=== PATIENT | male | born 1975 | race Caucasian/White ===

== ENCOUNTER 2018-09-03 04:11 | Day surgery (SDC) | payer OTHER ==
[2018-09-03] MEDS ORDERED: Morphine VIAL* 4 MG/ML VIAL (1 ml vial) IV PRN ×2 (04:37→12:50)
[2018-09-03] MEDS ORDERED: NS 0.9% 1000 ML* 1,000 ML IV ONE (04:37)
[2018-09-03] MEDS ORDERED: Metoclopramide IV* 5 MG/ML 2 ML VIAL IV SLOW PU ONE (04:37)
[2018-09-03 05:10] LABS: ABS Basophils 0.1 10^3/ul (0-0.2); ABS Eosinophils 0.2 10^3/ul (0-0.6); ABS Lymphocytes 1.8 10^3/ul (1.0-4.8); ABS Monocytes 1.1 10^3/ul (0-0.8); ABS Neutrophils 7.2 10^3/ul (1.5-7.7); ABS Nucleated RBC 0 10^3/ul; Eosinophil % 1.7 % (0-6); Hematocrit 44 % (42-52); Hemoglobin 14.9 g/dl (14.0-18.0); Lymphocyte % 17.7 % (25-47); Mean Corpuscular HGB Conc 34 g/dl (31-36); Mean Corpuscular Hemoglobin 31 pg (27-31); Mean Corpuscular Volume 91 fL (80-94); Mean Platelet Volume 8.1 fL (7.4-10.4); Nucleated Red Blood Cells % 0; Platelet Count 204 10^3/ul (150-450); Red Blood Count 4.79 10^6/ul (4.00-5.40); Red Cell Distribution Width 13 % (10.5-15); White Blood Count 10.4 10^3/ul (3.5-10.8)
[2018-09-03 05:12] LABS: Urine Appearance Clear; Urine Blood Negative (Negative); Urine Color Yellow; Urine Ketones Negative (Negative); Urine Protein Negative (Negative); Urine Specific Gravity 1.021 (1.010-1.030); Urine Urobilinogen Negative (Negative)
[2018-09-03 05:18] LABS: INR 0.98 (0.77-1.02)
--- NOTE | 2018-09-03 05:20 | ED ---
Abdominal Pain/Male - HPI Summary HPI Summary: A 42 y/o male presents to the ED c/o RUQ abd pain since 09/01/2018. He denies N/ V. He claims to have had no abdominal surgeries but has a Hx of diverticulitis. He rates his pain as 5/10. He states that it hurts when he coughs and also c/o diarrhea. The pt did not have trouble eating today 09/03/2018. - History of Current Complaint Chief Complaint: EDAbdPain Stated Complaint: ABD PAIN Time Seen by Provider: 09/03/18 04:26 Hx Obtained From: Patient Onset/Duration: Sudden Onset, Lasting Days, Still Present Timing: Constant, Lasting Days Severity Initially: Moderate Severity Currently: Moderate Pain Intensity: 5 Pain Scale Used: 0-10 Numeric - Allergies/Home Medications Allergies/Adverse Reactions: Allergies Allergy/AdvReac Type Severity Reaction Status Date / Time No Known Allergies Allergy Verified 09/03/18 04:22 Home Medications: Home Medications NK [No Home Medications Reported] 09/03/18 [History Confirmed 09/03/18] PMH/Surg Hx/FS Hx/Imm Hx Endocrine/Hematology History: Denies: Hx Diabetes Cardiovascular History: Denies: Hx Hypertension Infectious Disease History: No Infectious Disease History: Denies: Traveled Outside the [place] in Last 30 Days - Family History Known Family History: Negative: Cardiac Disease, Hypertension, Diabetes - Social History Alcohol Use: None Substance Use Type: Reports: None Smoking Status (MU): Never Smoked Tobacco Review of Systems Positive: Cough Positive: Abdominal Pain - RUQ, Diarrhea. Negative: Vomiting, Nausea All Other Systems Reviewed And Are Negative: Yes Physical Exam - Summary Physical Exam Summary: VITAL SIGNS: Reviewed. GENERAL: Patient is a well-developed and nourished MALE who is lying comfortable in the stretcher. Patient is not in any acute respiratory distress. HEAD AND FACE: No signs of trauma. No ecchymosis, hematomas or skull depressions. No sinus tenderness. EYES: PERRLA, EOMI x 2, No injected conjunctiva, no nystagmus. EARS: Hearing grossly intact. Ear canals and tympanic membranes are within normal limits. MOUTH: Oropharynx within normal limits. NECK: Supple, trachea is midline, no adenopathy, no JVD, no carotid bruit, no c- spine tenderness, neck with full ROM. CHEST: Symmetric, no tenderness at palpation LUNGS: Clear to auscultation bilaterally. No wheezing or crackles. CVS: Regular rate and rhythm, S1 and S2 present, no murmurs or gallops appreciated. ABDOMEN: Soft, RUQ tenderness, mild abd distension, No rebound no guarding, and no masses palpated. Bowel sounds are normal. EXTREMITIES: FROM in all major joints, no edema, no cyanosis or clubbing. NEURO: Alert and oriented x 3. No acute neurological deficits. Speech is normal and follows commands. SKIN: Dry and warm Triage Information Reviewed: Yes Vital Signs On Initial Exam: Initial Vitals Temp Pulse Resp BP Pulse Ox 98.3 F 94 16 115/81 95 09/03/18 04:19 09/03/18 04:19 09/03/18 04:19 09/03/18 04:19 09/03/18 04:19 Vital Signs Reviewed: Yes Diagnostics - Vital Signs Vital Signs Temp Pulse Resp BP Pulse Ox 09/03/18 04:19 98.3 F 94 16 115/81 95 - Laboratory Lab Results: Lab Results 09/03/18 09/03/18 Range/Units 04:53 04:55 WBC 10.4 (3.5-10.8) 10^3/ul RBC 4.79 (4.00-5.40) 10^6/ul Hgb 14.9 (14.0-18.0) g/dl Hct 44 (42-52) % MCV 91 (80-94) fL MCH 31 (27-31) pg MCHC 34 (31-36) g/dl RDW 13 (10.5-15) % Plt Count 204 (150-450) 10^3/ul MPV 8.1 (7.4-10.4) fL Neut % (Auto) 69.4 (38-83) % Lymph % (Auto) 17.7 L (25-47) % [place] % (Auto) 10.7 H (0-7) % Eos % (Auto) 1.7 (0-6) % Baso % (Auto) 0.5 (0-2) % Absolute Neuts (auto) 7.2 (1.5-7.7) 10^3/ul Absolute Lymphs (auto) 1.8 (1.0-4.8) 10^3/ul Absolute Monos (auto) 1.1 H (0-0.8) 10^3/ul Absolute Eos (auto) 0.2 (0-0.6) 10^3/ul Absolute Basos (auto) 0.1 (0-0.2) 10^3/ul Absolute Nucleated RBC 0 10^3/ul Nucleated RBC % 0 Urine Color Yellow Urine Appearance Clear Urine pH 7.0 (5-9) Ur Specific [place] 1.021 (1.010-1.030) Urine Protein Negative (Negative) Urine Ketones Negative (Negative) Urine Blood Negative (Negative) Urine Nitrate Negative (Negative) Urine Bilirubin Negative (Negative) Urine Urobilinogen Negative (Negative) Ur Leukocyte Esterase Negative (Negative) Urine Glucose Negative (Negative) Result Diagrams: 09/03/18 04:55 09/03/18 04:55 Lab Statement: Any lab studies that have been ordered have been reviewed, and results considered in the medical decision making process. - CT Abdomen/pelvis CT Interpretation Completed By: Radiologist - Findings consistent with acute appendicitis. No calcified appendicolith. No periappendiceal abscess. No evidence of perforation. No bowel obstruction. ED physician has reviewed this imaging report. Abdominal Pain Fem Course/Dx - Course Course Of Treatment: A 42 y/o male presents to the ED c/o RUQ abd pain since 09/01/2018. His PE revealed RUQ pain. His CT abdomen/pelvis shows findings consistent with acute appendicitis. Dx: appendicitis. The pt will be signed out to Dr. Fernandez pending surgical consult and disposition. - Diagnoses Provider Diagnoses: Appendicitis - Provider Notifications Discussed Care Of Patient With: Gary Mckeon Time Discussed With Above Provider: 06:45 Instructed by Provider To: Other - Will send for surgical consult. Discharge - Sign-Out/Discharge Documenting (check all that apply): Sign-Out Patient Signing out patient TO: Crow Fernandez - Discharge Plan Referrals: No Primary Care Phys,NOPCP [Primary Care Provider] - - Attestation Statements Document Initiated by Scribe: Yes Documenting Scribe: Jameson Miramontes Provider For Whom Scribe is Documenting (Include Credential): Kole Duran MD Scribe Attestation: Jameson Schafer, scribed for Kole Duran MD on 09/03/18 at 0711.
[2018-09-03 05:28] LABS: EGFR Non-African American 76.2 (>60)
[2018-09-03] MEDS ORDERED: Iohexol 300* (CONTRAST) 10 ML SDV IV ONE (05:52)
[2018-09-03] MEDS ORDERED: Piperacillin/Tazobac ADVAN(*) 3.375 GM in NS 0.9% 100 ML* 100 ML IVPB ONE (06:46)
--- NOTE | 2018-09-03 07:19 | ED ---
Progress - Progress Note Progress Note: The pt was signed out by Dr. Duran to Dr. Fernandez, awaiting surgical consult and disposition Course/Dx - Course Course Of Treatment: A 42 y/o male presents to the ED c/o RUQ abd pain since 09/01/2018. His PE revealed RUQ pain. His CT abdomen/pelvis shows findings consistent with acute appendicitis. Dx: appendicitis. The pt was signed out by Dr. Duran to Dr. Fernandez pending surgical consult and disposition. Pt will be admitted to [facility]. The patient is agreeable with this plan. - Diagnoses Provider Diagnoses: Appendicitis - Provider Notifications Time Discussed With Above Provider: 06:45 Instructed by Provider To: Other - Will send for surgical consult. Discharge - Sign-Out/Discharge Documenting (check all that apply): Patient Departure - admission Receiving patient FROM: Kole Duran - Discharge Plan Disposition: ADMITTED TO [facility] - Attestation Statements Document Initiated by Scribe: Yes Documenting Scribe: Abraham Moreira Provider For Whom Scribe is Documenting (Include Credential): Crow Fernandez MD Scribe Attestation: Abraham Schafer, scribed for Crow Fernandez MD on 09/03/18 at 1235.
[2018-09-03] MEDS ORDERED: Famotidine IV* 10 MG/ML 2 ML (20 mg) IV ONE (08:50)
[2018-09-03] MEDS ORDERED: Famotidine IV* 10 MG/ML 2 ML (20 mg) ONE (09:08)
[2018-09-03] MEDS ORDERED: Buffered Lidocaine 0.9% SYRIN* 5 ML/SYR SYRINGE INTRADERM ONE (12:48)
[2018-09-03] MEDS ORDERED: fentaNYL* 50 MCG/ML 2 ML VIAL (100 MCG VIAL) IV PRN (12:50)
[2018-09-03] MEDS ORDERED: Naloxone* 0.4 MG/ML 1 ML VIAL IV PRN (12:50)
[2018-09-03] MEDS ORDERED: oxyCODONE/Acetamin 5/325 MG* TAB PO PRN (12:50)
[2018-09-03] MEDS ORDERED: PROCHLORPERAZINE INJ 5 MG/ML 2 ML VIAL IV PRN (12:50)
[2018-09-03] MEDS ORDERED: DiMENhydriNATE IV* 50 MG/ML VIAL IV PUSH PRN (12:50)
[2018-09-03] MEDS ORDERED: Scopolamine 1.5 mg* PATCH TRANSDERM PRN (12:50)
[2018-09-03] MEDS ORDERED: Atracurium* 10 MG/ML 10 ML VIAL ONE (13:10)
[2018-09-03] MEDS ORDERED: Midazolam* 1 MG/ML 5 ML VIAL (5 MG) ONE (13:10)
[2018-09-03] MEDS ORDERED: KETAMINE HCL* 50 MG/ML 10 ML VIAL ONE (13:10)
[2018-09-03] MEDS ORDERED: fentaNYL* 50 MCG/ML 2 ML VIAL (100 MCG VIAL) ONE (13:10)
--- NOTE | 2018-09-03 13:44 | HP ---
AMENDED REPORT NOW INCLUDES COSIGNER DESIGNATION CC: [facility] * ADMISSION HISTORY AND PHYSICAL: DATE OF ADMISSION: 09/03/18 ATTENDING SURGEON: Dr. Cory Gates.* (DICTATED BY HENNY MARTÍNEZ) CHIEF COMPLAINT: Abdominal pain. HISTORY OF PRESENT ILLNESS: This is a generally healthy 42-year-old male, who first noted onset of abdominal discomfort in the morning of 09/02/18. He describes this as feeling gassy and somewhat distended with a low level ache that began in the central periumbilical region and gradually moved to the right lower quadrant. Pain was never bad enough to take anything more than ibuprofen. However, he was awakened with discomfort at 2 o'clock this morning and did have a fever at that time of 100.4. He was unable to get comfortable and get back to sleep. He did have increased pain with motion. There was associated nausea, vomiting, or diarrhea. At the encouragement of his , he presented to the emergency department for evaluation. 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 He is obese. PAST SURGICAL HISTORY: None. CURRENT MEDICATIONS: None including only p.r.n. use of Tylenol or ibuprofen. No inhalers and no supplements. DRUG ALLERGIES: None. FAMILY HISTORY: Positive for alpha-1 antitrypsin deficiency and negative for anesthesia problems, bleeding or clotting disorders. SOCIAL HISTORY: The patient is . His is present. They have 3 children. 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 He is a lifelong nonsmoker. He drinks 1 to 2 drinks on occasion, but not daily. REVIEW OF SYSTEMS: General: No recent constitutional symptoms or acute illnesses other than described in the HPI. His weight has been stable. HEENT: No recent changes in vision. No other problems reported. Cardiovascular: No chest pain, palpitations, or history of heart murmur. Respiratory: As above , being monitored, but no medication required. GI: As above per HPI. In addition, he did undergo colonoscopy approximately 20 years ago for what was apparently some diverticular bleeding with no interval problems reported. : No dysuria, hematuria, or increased frequency. Endocrine: No diabetes or thyroid dysfunction. Remainder of review of systems is negative. PHYSICAL EXAMINATION GENERAL: Well-nourished, obese male, in no acute distress. He appears comfortable. VITAL SIGNS: Height 6 feet 1 inch, weight 255 pounds. Temperature 98.3, blood pressure 125/85, pulse 74, respirations 20. HEENT: Pupils are equal, round, and reactive. EOMs intact. No conjunctival pallor or scleral icterus. Oropharynx: Mucous membranes moist. No intraoral lesions. Teeth in good repair. NECK: No lymphadenopathy, thyromegaly, or masses. LUNGS: Clear to auscultation. No wheezes. HEART: Regular rate and rhythm. No murmur noted. ABDOMEN: Obese. Bowel sounds present and normal. Soft with fairly well- localized tenderness at McBurney's point with mild rebound and some referred tenderness. No guarding or rigidity. The remainder of the abdomen is soft, nontender, and without palpable masses or organomegaly, though exam is limited by body habitus. No palpable inguinal hernias. GENITALIA: Otherwise, not examined. RECTAL: Not done. BACK: No spinous process or CVA tenderness. EXTREMITIES: No edema. NEUROLOGICAL: Grossly intact. SKIN: Warm and dry. No suspicious rashes or lesions. DIAGNOSTIC STUDIES/LAB DATA: Of note, white blood cell count 10,400, hemoglobin 14.9. Chemistries notable for normal electrolytes, BUN, creatinine, lactic acid, amylase, and lipase. He has a slightly low magnesium at 1.8. Mildly elevated ALT at 76, which has apparently been followed in the past. CRP elevated at 35. CT scan of the abdomen and pelvis with IV contrast only was reviewed directly, showing an enlarged appendix without evidence of abscess or perforation, felt to be consistent with acute appendicitis. IMPRESSION: Acute appendicitis. PLAN: Admission and OR for laparoscopic appendectomy after confirmation of findings and exam by Dr. Gates. The patient is in agreement with plan. HENNY MARTÍNEZ [id number]/[facility] #: [id number] MTDTraci
[2018-09-03] MEDS ORDERED: Bupivacaine 0.5% W/EPI SDV* 30 ML VIAL ONE (13:47)
[2018-09-03] MEDS ORDERED: ceFOXitin 2 GM IVPREMIX* 2 GM/50 ML BAG ONE (13:59)
[2018-09-03] MEDS ORDERED: Ketorolac INJ* 30 MG/ML 1 ML VIAL ONE (14:41)
[2018-09-03] MEDS ORDERED: Neostigmine Methylsulfate* 1 MG/ML 10 ML VIAL (1 mg/ml) ONE (14:41)
[2018-09-03] MEDS ORDERED: Propofol* 10 MG/ML 20 ML BTL IV PUSH ONE (14:41)
[2018-09-03] MEDS ORDERED: Glycopyrrolate IV* 0.2 MG/ML 1 ML VIAL ONE (14:41)
[2018-09-03] MEDS ORDERED: Dexamethasone IV* 4 MG/ML 1 ML (4 MG) ONE (14:41)
[2018-09-03] MEDS ORDERED: Lidocaine 2% PF * 5 ML VIAL ONE (14:53)
[2018-09-03] MEDS ORDERED: Albuterol/Ipratropium NEB.SOL* Albuterol 2.5 MG/Ipratropium 0.5 MG 3 ML ONE (15:04)
[2018-09-03 16:24] VITALS: BP 126/67
--- NOTE | 2018-09-04 13:12 | OP ---
CC: Dr. Cory Gates; [facility]. OPERATIVE REPORT: DATE OF OPERATION: 09/03/18 DATE OF : 77 SURGEON: Cory Gates MD CANE FLUME WATCHER: None. ANESTHESIOLOGIST: Dr. Chauhan. ANESTHESIA: General anesthetic, local infiltration. PRE-OP DIAGNOSIS: Acute appendicitis. POST-OP DIAGNOSIS: Acute appendicitis. OPERATIVE PROCEDURE: Laparoscopic appendectomy. DESCRIPTION OF PROCEDURE: The patient was supine on the operating room table. After adequate general anesthetic, compression stockings, Vandana Hugger warmer, and intravenous antibiotics, the abdomen was prepped with antiseptic and draped in a sterile fashion. Local infiltrative anesthesia was administe red and a small umbilical incision was created. Blunt port cannula was placed. Insufflation was car ried out with carbon dioxide. Additional cannulae, 5 mm left lower quadrant and left mid abdomen, we re placed through small stab wounds under direct vision. The appendix was rather inflamed and tucked in behind the ileocecal valve, but it was eventually brought up into the operative field. The base of the appendix was divided using an endo-SHU stapler with 45-mm rosario load. The mesoappendix was divi ded using the LigaSure device. The appendix was placed in a retrieval bag and brought out through th e umbilical site. The operative field was examined carefully and it was hemostatic. The staple line appeared to be in excellent condition. Cannulae removed, pneumoperitoneum was allowed to escape. Th e umbilical fascia was closed with 0 Vicryl. The 2 small incisions were closed with 5-0 Vicryl for t he skin followed by Steri-Strips, gauze dressing was placed in the umbilicus. He tolerated the proce dure well, was awakened and brought to the recovery in good condition. No complications. No drains. Pathologic specimen was appendix. Sponge and instrument counts correct. Estimated blood loss was l ess than 20 mL. [id number]/[facility] [place] #: [id number]
[2018-09-06] MEDS ORDERED: Scopolamine PATCH Remove* 1 NOTE MISC PATCH OFF ONE (12:51)
== END 2018-09-03 08:09 | disposition home or self-care (01) ==
LOC: ED 04:11 → OR 08:09
PROVIDERS: ATTEND Surgery
DX: K35.80 Unspecified acute appendicitis (principal); R10.31 Right lower quadrant pain; J44.9 Chronic obstructive pulmonary disease, unspecified; E88.01 Alpha-1-antitrypsin deficiency; R10.11 Right upper quadrant pain
CPT/HCPCS: 36415; 74177; 80053; 81003; 82150; 83605; 83690; 83735; 85025; 85610; 85730; 86140; 86850; 86900; 86901; 87040; 88304; 96375; 99284; A9270-GY; C1776; J0694; J1100; J1885; J2250; J2270; J2543; J2704; J2710; J2765; J3010; Q9967